=== PATIENT | male | born 1955 | race Caucasian/White ===

== ENCOUNTER → 2023-12-12 12:57 | Outpatient (REF) | payer OTHER, SELFPAY ==
[2023-12-12 15:02] LABS: Vitamin D,25 Hydroxy 17.6 ng/mL
== END ==
LOC: LABSPEC 12:57
PROVIDERS: Visit Provider Nurse Practitioner Family
DX: E61.7 Deficiency of multiple nutrient elements (principal); A44.0 Systemic bartonellosis; G89.29 Other chronic pain; R21 Rash and other nonspecific skin eruption; G62.9 Polyneuropathy, unspecified
CPT/HCPCS: 82306

== ENCOUNTER → 2024-01-16 13:25 | Outpatient (REF) | payer OTHER, SELFPAY ==
[2024-01-16 14:04] LABS: Ferritin 96 ng/mL (26-388); Iron 67 ug/dL (65-175)
[2024-01-16 15:00] LABS: ALB/GLOB Ratio 1.1 RATIO (0.9-2.4); AST(SGOT) 33 U/L (15-37); Alanine Aminotransfer ALT/SGPT 24 U/L (16-61); Albumin, Serum 3.9 g/dL (3.2-5.0); Alkaline Phosphatase 63 U/L (45-117); Anion Gap 7 (5-15); BUN 29 mg/dL (7-18); BUN/Creat Ratio 15.9 RATIO (10-20); Calcium,Total 9.3 mg/dL (8.5-10.1); Chloride 100 mmol/L (98-107); Creatinine, Serum 1.82 mg/dL (0.70-1.30); EST Glomerular Filtration Rate 40 mL/min (>60); Est Glom Filt Rate - Afr Amer 48 mL/min (>60); Globulin 3.7 g/dL (2.2-4.2); Glucose 82 mg/dL (74-106); Potassium 5.3 mmol/L (3.5-5.1); Protein, Total 7.6 g/dL (6.4-8.2); Sodium Level 138 mmol/L (136-145)
== END ==
LOC: LABSPEC 13:25
PROVIDERS: Referring Provider Nurse Practitioner Family; Visit Provider Nurse Practitioner Family
DX: E61.7 Deficiency of multiple nutrient elements (principal); A44.0 Systemic bartonellosis; A68.1 Tick-borne relapsing fever; G89.29 Other chronic pain; I25.10 Atherosclerotic heart disease of native coronary artery without angina pectoris
CPT/HCPCS: 80053; 82728; 83090; 83540

== ENCOUNTER → 2024-04-08 | Outpatient (CLI) | payer MEDICARE, SELFPAY ==
[2024-04-08 16:58] LABS: Uric Acid 5.9 mg/dL (3.5-7.2)
== END | disposition home or self-care (01) ==
PROVIDERS: Referring Provider Nurse Practitioner Family; Visit Provider Nurse Practitioner Family
DX: M25.50 Pain in unspecified joint (principal)
CPT/HCPCS: 84550